=== PATIENT | male | born 1950 ===

== ENCOUNTER 2019-01-09 10:50 | Observation (INO) | payer MEDICARE ==
[2019-01-04 10:53] LABS: Basophils % (Auto) 0.9 % (0.0-1.8); Eosinophils # (Auto) 0.8 K/mm3 (0.0-0.4); Eosinophils % (Auto) 14.9 % (0.0-4.3); Hematocrit 40.1 % (35.5-45.6); Hemoglobin 13.8 gm/dl (11.8-15.2); Lymphocytes # (Auto) 1.3 K/mm3 (1.2-5.4); Lymphocytes % (Auto) 24.9 % (13.4-35.0); Mean Corpuscular HGB Conc 34 % (32-34); Mean Corpuscular Volume 94 fl (84-94); Monocytes # (Auto) 0.4 K/mm3 (0.0-0.8); Monocytes % (Auto) 7.7 % (0.0-7.3); Platelet Count 190 K/mm3 (140-440); Red Blood Count 4.29 M/mm3 (3.65-5.03); Red Cell Distribution Width 14.9 % (13.2-15.2)
--- NOTE | 2019-01-04 11:03 | Anesthesia Consultation ---
Anesthesia Consult and Med Hx - Airway Anesthetic Teeth Evaluation: Poor ROM Head & Neck: Adequate Mental/Hyoid Distance: Adequate Mallampati Class: Class II Intubation Access Assessment: Good - Pulmonary Exam CTA: Yes - Cardiac Exam Cardiac Exam: RRR - Pre-Operative Health Status ASA Pre-Surgery Classification: ASA2 Proposed Anesthetic Plan: General (Pt with BPH, elevated cholesterol for GA for cystoscopy)
[2019-01-04 11:26] LABS: Partial Thromboplastin Time 22.2 Sec. (24.2-36.6)
[2019-01-04 12:03] LABS: Alanine Aminotransferase 14 units/L (7-56); Albumin 3.9 g/dL (3.9-5); BUN/Creatinine Ratio 19; Blood Urea Nitrogen 15 mg/dL (9-20); Calcium 9.1 mg/dL (8.4-10.2); Hemolysis Index 14
[~2019-01-09 10:50] MED LIST: VERSED IV NR
[2019-01-09] MEDS: LACTATED RINGERS 1,000 ML IV SCH (11:45)
[2019-01-09] MEDS ORDERED: VERSED IV NR (12:00)
[2019-01-09] MEDS ORDERED: SUBLIMAZE IV PRN (12:00)
[2019-01-09] MEDS ORDERED: ANCEF/STERILE WATER 2 GM/20 ML 2 GM/20 ML SYRINGE IV NR (12:00)
--- NOTE | 2019-01-09 12:03 | Anesthesia Day of Surgery ---
Anesthesia Day of Surgery - Day of Surgery Patient Examined: Yes Patient H&P Reviewed: Yes Patient is NPO: Yes
[2019-01-09] MEDS ORDERED: DIPRIVAN 10 MG/ML IV ONE (13:30)
[2019-01-09] MEDS ORDERED: SUBLIMAZE ONE ×2 (13:30→14:34)
[2019-01-09] MEDS ORDERED: XYLOCAINE MPF 2% ONE (13:31)
[2019-01-09] MEDS ORDERED: NACL 0.9% IR ONE (14:22)
[2019-01-09] MEDS ORDERED: ZOFRAN ONE (14:48)
[2019-01-09] MEDS ORDERED: PHENYLEPHRINE/NS Syringe 1,000 MCG/10 ML IV ONE (14:50)
[2019-01-09] MEDS ORDERED: TYLENOL PO PRN (16:16)
[2019-01-09] MEDS ORDERED: PERCOCET 5/325 PO PRN (16:16)
[2019-01-09] MEDS ORDERED: AMBIEN PO PRN (16:17)
--- NOTE | 2019-01-09 17:19 | Operative Report ---
PREOPERATIVE DIAGNOSES: Urinary retention, prostatic enlargement, weak bladder. POSTOPERATIVE DIAGNOSES: Urinary retention, prostatic enlargement, weak bladder. PROCEDURE: Cystoscopy, transurethral resection of prostate. SURGEON: Dr. Lemons. ANESTHESIA: General. FINDINGS: This is a gentleman with recurrent urinary retention who was on intermittent catheterization. 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 He now presents for treatment. DESCRIPTION OF PROCEDURE: The patient was brought to the operating room, placed on the operating table. Following induction of anesthesia, placed in lithotomy position, prepped and draped in usual sterile fashion. Clearly, there was bilobar hypertrophy blocking the urethra. Bladder neck was elevated. Resection of both lobes was carried out without difficulty first on the right, then on the left. The prostate was sitting on the trigone. We allowed the bladder to fill so there was no injury to the trigone or the orifices. There was a posterior wall diverticulum which filled with some of the chips. All the chips were evacuated out. The patient tolerated the procedure well. No significant complications. A 3-way 24 catheter was placed. Estimated blood loss was less than 100 mL. Family notified, brought to recovery room, 3-way 24 catheter in stable condition. JOB# [id number] [facility]ORGI
[2019-01-10] MEDS: NACL 0.9% IR SCH ×6 (02:03→06:36)
[2019-01-10] MEDS: LACTATED RINGERS 1,000 ML IV SCH ×2 (02:07→11:56)
--- NOTE | 2019-01-10 07:36 | Post Anesthesia Evaluation ---
- Post Anesthesia Evaluation Patient Participated: Yes Airway Patent: Yes Stable Respiratory Function: Yes Nausea/Vomiting: No Temp > 96.8F: Yes Pain Manageable: Yes Adequeate Hydration: Yes Anesthesia Complications: No Block Receding Appropriately: Not Applicable Patient on Ventilator: No
[2019-01-10 07:49] VITALS: BP 125/79
--- NOTE | 2019-01-10 15:43 | Post Operative Note ---
Date of procedure: 01/10/19 Pre-op diagnosis: AUR Post-op diagnosis: same Findings: bph Procedure: cysto turp Anesthesia: GETA Surgeon: LEIGHTON CUEVA Estimated blood loss: minimal Pathology: list (prostate) Specimen disposition: to lab Condition: stable Disposition: PACU
--- NOTE | 2019-01-10 15:44 | Progress Note ---
Assessment and Plan looks good urine clear home with cath Subjective Date of service: 01/10/19 Principal diagnosis: AUR Objective - Constitutional Vitals: Vital Signs - 12hr 01/10/19 01/10/19 03:49 07:49 Temperature 98.0 F 98.1 F Pulse Rate 68 76 Respiratory 18 18 Rate Blood Pressure 120/78 Blood Pressure 125/79 [Right] O2 Sat by Pulse 100 96 Oximetry General appearance: Present: no acute distress - Neck Neck: supple - Respiratory Respiratory effort: normal - Gastrointestinal General gastrointestinal: Present: soft, non-tender - Labs CBC & Chem 7: 01/04/19 10:20 01/04/19 10:20 Medications & Allergies - Medications Allergies/Adverse Reactions: Allergies No Known Allergies Allergy (Verified 01/04/19 11:36) Home Medications: Home Medications Medication Instructions Recorded Confirmed Last Taken Type Simvastatin 40 mg PO QPM 01/09/19 01/09/19 01/08/19 18:00 History Active Medications: Generic Name Dose Route Start Last Admin Trade Name Freq PRN Reason Stop Dose Admin Acetaminophen 650 mg 01/09/19 16:16 Tylenol PO Q6H PRN Pain, Mild (1-3) Lactated Ringer's 1,000 mls @ 100 mls/hr 01/04/19 12:00 01/10/19 11:56 Lactated Ringers IV 100 mls/hr DIRECT KESHAV Administration Oxycodone/Acetaminophen 1 tab 01/09/19 16:16 01/09/19 21:25 Percocet 5/325 PO 1 tab Q6H PRN Administration Pain, Moderate (4-6) Sodium Chloride 2,000 ml 01/09/19 20:00 01/10/19 06:36 Nacl 0.9% IR 2,000 ml DIRECT KESHAV Administration Zolpidem Tartrate 10 mg 01/09/19 16:17 01/09/19 21:25 Ambien PO 10 mg QHS PRN Administration Insomnia
--- NOTE | 2019-01-10 15:45 | Discharge Summary ---
Short Stay Discharge Plan Activity: other (no straining ) Weight Bearing Status: Full Weight Bearing Diet: low fat, low cholesterol, low salt Special Instructions: other (inc fluids ) Durable Medical Equipment Needed Upon Discharge: other ([facility] care ) Follow up with: PRIMARY CARE, [Primary Care Provider] - 7 Days LEIGHTON CUEVA MD [Staff Physician] - 3 Days
--- NOTE | 2019-01-11 20:32 | Fluoroscopy Report ---
INTRAOPERATIVE FLUOROSCOPY: CYSTOGRAM INDICATION: Urinary retention. Intraoperative cystogram. TECHNIQUE: Intraoperative spot images were obtained during the procedure. FINDINGS: There is unremarkable appearing opacification of the bladder. No extravasation of contrast into the p aby is seen. Please see the operative report for further details. Fluoroscopy Time: 38 seconds. Fluoroscopy Images: 3. Signer Name: [email or web address] Yoder MD Signed: 01/11/2019 8:28 PM Workstation Name: [id number]
== END 2019-01-10 17:10 | disposition home or self-care (01) ==
LOC: OR 10:50 → 3B-SURG 16:12
PROVIDERS: ADMIT Urology; ATTEND Urology
DX: N40.1 Benign prostatic hyperplasia with lower urinary tract symptoms (principal); R33.8 Other retention of urine
CPT/HCPCS: 36415; 52630; 74430; 80053; 85025; 85610; 85730; 86850; 86900; 86901; 88305; A4217; G0378; J2370; J2405; J2704; J3010; J7120; Q9967